=== PATIENT | female | born 1990 | race American Indian/Alaskan Native ===

== ENCOUNTER 2016-11-15 09:44 | Emergency (ER) | payer OTHER ==
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
[2016-11-15] MEDS ORDERED: FLEXERIL PO ONE (16:08)
[2016-11-15] MEDS ORDERED: NORCO 5/325 PO ONE (16:08)
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
[2016-11-15 19:04] VITALS: BP 123/85
== END 2016-11-15 19:04 | disposition home or self-care (01) ==
LOC: ED 09:44
DX: S20.219A Contusion of unspecified front wall of thorax, initial encounter (principal); M54.6 Pain in thoracic spine; M79.601 Pain in right arm; V49.59XA Passenger injured in collision with other motor vehicles in traffic accident, initial encounter; Y93.9 Activity, unspecified; Y92.9 Unspecified place or not applicable; Y99.9 Unspecified external cause status
CPT/HCPCS: 72128

== ENCOUNTER 2020-07-22 18:06 | Emergency (ER) | payer MEDICAID, OTHER ==
[2020-07-22 19:08] LABS: Basophils % (Auto) 0.5 % (0.0-1.8); Eosinophils # (Auto) 0.1 K/mm3 (0.0-0.4); Eosinophils % (Auto) 0.8 % (0.0-4.3); Hematocrit 39.7 % (30.3-42.9); Hemoglobin 13.6 gm/dl (10.1-14.3); Lymphocytes # (Auto) 2.8 K/mm3 (1.2-5.4); Lymphocytes % (Auto) 34.5 % (13.4-35.0); Mean Corpuscular HGB Conc 34 % (30-34); Mean Corpuscular Volume 91 fl (79-97); Monocytes # (Auto) 0.8 K/mm3 (0.0-0.8); Monocytes % (Auto) 9.3 % (0.0-7.3); Platelet Count 240 K/mm3 (140-440); Red Blood Count 4.34 M/mm3 (3.65-5.03); Red Cell Distribution Width 14.1 % (13.2-15.2)
--- NOTE | 2020-07-22 19:28 | Event Note ---
ED Screening Note Date of service: 07/22/20 Time: 19:26 ED Screening Note: 29-year-old female (A1; LMP 04/16/20) presents to the emergency department with complaints of lower abdominal cramps and vaginal bleeding starting yesterday. Describes the bleeding as "spotting." States she has only used one pad today. No recent trauma. Patient's last ended in demise approximately 5 months ago. Ultrasound last week was reportedly normal. She is scheduled to return to her OB at the end of July. General: Awake, appropriately interactive, no acute distress. Neck: Supple. Full range of motion intact. Cardiovascular: Normal peripheral perfusion. Pulmonary: No respiratory distress. Patient is speaking normally without use of accessory muscles. Skin: No apparent rashes or lesions. Neurological: No facial asymmetry. Speech is clear. Follows commands. Patient is alert and oriented. Musculoskeletal: Moves all four extremities spontaneously with normal range of motion. Psych: Cooperative. Appropriate mood and affect. I have greeted and performed a focused rapid initial assessment of this patient. A comprehensive ED assessment and evaluation of the patient, analysis of all test results, and completion of the medical decision-making process will be conducted by additional ED providers. This initial assessment/diagnostic orders/clinical plan/treatment(s) is/are subject to change based on patients health status, clinical progression and re-assessment. Further treatment and workup at subsequent clinical provider's discretion. Patient/guardian urged not to elope from the ED as their condition may be serious if not clinically assessed and managed.
[2020-07-22 19:55] LABS: Bacteria,Urine 1+ /HPF (Negative); Bilirubin,Urine NEG (Negative); Blood,Urine NEG (Negative); Color,Urine Yellow (Yellow); Mucus,Urine 2+ /HPF; Protein,Urine <15 mg/dL mg/dL (Negative); Urobilinogen,Urine < 2.0 mg/dL (<2.0)
[2020-07-22] MEDS ORDERED: METOCLOPRAMIDE 10 MG TAB PO ONE (20:35)
[2020-07-22] MEDS ORDERED: ACETAMINOPHEN 325 MG TAB PO ONE (20:35)
--- NOTE | 2020-07-22 21:16 | Ultrasound Report ---
US OB <= 14 weeks fetus INDICATION / CLINICAL INFORMATION: , cramping, bleeding. COMPARISON: None available. FINDINGS: Single intrauterine is seen. Staley-rump length is 13.7 mm, 7 weeks 5 days. Heart rate is 16 9. Sac is noted. Gestational sac is unremarkable. Cervix is closed measuring 3.2 cm. Ovaries are unremarkable. No adnexal lesions or free fluid. IMPRESSION: 1. Single viable intrauterine with sonographic gestational age of 7 weeks, 5 days. No abnor malities are seen. Signer Name: Manuel Nevarez MD Signed: 07/22/2020 9:11 PM Workstation Name: [id number]
--- NOTE | 2020-07-22 21:46 | Emergency Department Report ---
ED General Adult HPI - General Chief complaint: Vaginal Bleeding Stated complaint: 7WKS SPOTTING Time Seen by Provider: 07/22/20 20:20 Source: patient Mode of arrival: Ambulatory Limitations: No Limitations - History of Present Illness Initial comments: Patient is a 29-year-old female presents emergency room with points of lower abdominal cramping that began yesterday. She states that she was also having some light vaginal spotting which has completely resolved. She denies any heavy bleeding or passing clots. She states that she is still intermittently experiencing mild lower cramping. She states that she is approximately 7 weeks . She states that she goes to [facility] and reports that she had a normal ultrasound a week ago. Patient states that she has a history of a demise in February 2020 and was approximately 6 months at that time. She states that she has had intermittent nausea and vomiting which is typ ically worse in the morning. She denies any fever, diarrhea, abnormal vaginal discharge. PMHx none. no allergies to meds. /P:1/A:5 Severity scale (0 -10): 7 - Related Data Previous Rx's Medication Instructions Recorded Last Taken Type Cyclobenzaprine [Flexeril] 10 mg PO TID PRN #15 tablet 11/15/16 Unknown Rx Ibuprofen [Motrin] 600 mg PO Q8H PRN #15 tablet 11/15/16 Unknown Rx Acetaminophen [Tylenol] 650 mg PO Q8HR PRN #20 capsule 07/22/20 Unknown Rx Jenni Root [Jenni] 250 mg PO TID PRN #21 capsule 07/22/20 Unknown Rx Metoclopramide [Reglan] 10 mg PO Q8HR PRN #12 tab 07/22/20 Unknown Rx Allergies Allergy/AdvReac Type Severity Reaction Status Date / Time No Known Allergies Allergy Unverified 11/15/16 09:52 ED Review of Systems ROS: Stated complaint: 7WKS SPOTTING Other details as noted in HPI Comment: All other systems reviewed and negative ED Past Medical Hx - Past Medical History Previous Medical History?: Yes Additional medical history: Miscarriage 03/2020 - Surgical History Past Surgical History?: Yes Additional Surgical History: x 4 - Social History Smoking Status: Never Smoker Substance Use Type: Alcohol, Marijuana - Medications Home Medications: Home Medications Medication Instructions Recorded Confirmed Last Taken Type Cyclobenzaprine [Flexeril] 10 mg PO TID PRN #15 tablet 11/15/16 Unknown Rx Ibuprofen [Motrin] 600 mg PO Q8H PRN #15 tablet 11/15/16 Unknown Rx Acetaminophen [Tylenol] 650 mg PO Q8HR PRN #20 capsule 07/22/20 Unknown Rx Jenni Root [Jenni] 250 mg PO TID PRN #21 capsule 07/22/20 Unknown Rx Metoclopramide [Reglan] 10 mg PO Q8HR PRN #12 tab 07/22/20 Unknown Rx ED Physical Exam - General Limitations: No Limitations General appearance: alert, in no apparent distress - Head Head exam: Present: atraumatic, normocephalic - Eye Eye exam: Present: normal appearance - ENT ENT exam: Present: mucous membranes moist - Respiratory Respiratory exam: Present: normal lung sounds bilaterally. Absent: respiratory distress, wheezes, rales, rhonchi, stridor, chest wall tenderness, accessory muscle use, decreased breath sounds, prolonged expiratory - Cardiovascular Cardiovascular Exam: Present: regular rate, normal rhythm, normal heart sounds. Absent: systolic murmur, diastolic murmur, rubs, gallop - GI/Abdominal GI/Abdominal exam: Present: soft, normal bowel sounds. Absent: distended, tenderness, guarding, rebound, rigid - Neurological Exam Neurological exam: Present: alert, oriented X3 - Psychiatric Psychiatric exam: Present: normal affect, normal mood - Skin Skin exam: Present: warm, dry, intact ED Course Vital Signs 07/22/20 07/22/20 07/22/20 18:17 21:04 22:04 Temperature 98.1 F Pulse Rate 100 H Respiratory 20 20 20 Rate Blood Pressure 122/67 Blood Pressure [Left] O2 Sat by Pulse 97 Oximetry 07/22/20 07/22/20 22:37 22:38 Temperature 98.4 F Pulse Rate 90 Respiratory 20 20 Rate Blood Pressure Blood Pressure 124/69 [Left] O2 Sat by Pulse 99 99 Oximetry ED Medical Decision Making - Lab Data Result diagrams: 07/22/20 18:35 Lab Results 07/22/20 07/22/20 07/22/20 Range/Units 18:35 18:35 18:35 WBC 8.1 (4.5-11.0) K/mm3 RBC 4.34 (3.65-5.03) M/mm3 Hgb 13.6 (10.1-14.3) gm/dl Hct 39.7 (30.3-42.9) % MCV 91 (79-97) fl MCH 31 (28-32) pg MCHC 34 (30-34) % RDW 14.1 (13.2-15.2) % Plt Count 240 (140-440) K/mm3 Lymph % (Auto) 34.5 (13.4-35.0) % Camp % (Auto) 9.3 H (0.0-7.3) % Eos % (Auto) 0.8 (0.0-4.3) % Baso % (Auto) 0.5 (0.0-1.8) % Lymph # (Auto) 2.8 (1.2-5.4) K/mm3 Camp # (Auto) 0.8 (0.0-0.8) K/mm3 Eos # (Auto) 0.1 (0.0-0.4) K/mm3 Baso # (Auto) 0.0 (0.0-0.1) K/mm3 Seg Neutrophils % 54.9 (40.0-70.0) % Seg Neutrophils # 4.4 (1.8-7.7) K/mm3 HCG, Quant [id number] H (0-4) mIU/mL Urine Color (Yellow) Urine Turbidity (Clear) Urine pH (5.0-7.0) Ur Specific [place] (1.003-1.030) Urine Protein (Negative) mg/dL Urine Glucose (UA) (Negative) mg/dL Urine Ketones (Negative) mg/dL Urine Blood (Negative) Urine Nitrite (Negative) Urine Bilirubin (Negative) Urine Urobilinogen (<2.0) mg/dL Ur Leukocyte Esterase (Negative) Urine WBC (Auto) (0.0-6.0) /HPF Urine RBC (Auto) (0.0-6.0) /HPF U Epithel Cells (Auto) (0-13.0) /HPF Urine Bacteria (Auto) (Negative) /HPF Urine Mucus /HPF Blood Type A POSITIVE 07/22/20 Range/Units 19:36 WBC (4.5-11.0) K/mm3 RBC (3.65-5.03) M/mm3 Hgb (10.1-14.3) gm/dl Hct (30.3-42.9) % MCV (79-97) fl MCH (28-32) pg MCHC (30-34) % RDW (13.2-15.2) % Plt Count (140-440) K/mm3 Lymph % (Auto) (13.4-35.0) % Camp % (Auto) (0.0-7.3) % Eos % (Auto) (0.0-4.3) % Baso % (Auto) (0.0-1.8) % Lymph # (Auto) (1.2-5.4) K/mm3 Camp # (Auto) (0.0-0.8) K/mm3 Eos # (Auto) (0.0-0.4) K/mm3 Baso # (Auto) (0.0-0.1) K/mm3 Seg Neutrophils % (40.0-70.0) % Seg Neutrophils # (1.8-7.7) K/mm3 HCG, Quant (0-4) mIU/mL Urine Color Yellow (Yellow) Urine Turbidity Slightly-cloudy (Clear) Urine pH 5.0 (5.0-7.0) Ur Specific [place] 1.030 (1.003-1.030) Urine Protein <15 mg/dl (Negative) mg/dL Urine Glucose (UA) Neg (Negative) mg/dL Urine Ketones Neg (Negative) mg/dL Urine Blood Neg (Negative) Urine Nitrite Neg (Negative) Urine Bilirubin Neg (Negative) Urine Urobilinogen < 2.0 (<2.0) mg/dL Ur Leukocyte Esterase Neg (Negative) Urine WBC (Auto) 1.0 (0.0-6.0) /HPF Urine RBC (Auto) 2.0 (0.0-6.0) /HPF U Epithel Cells (Auto) 17.0 H (0-13.0) /HPF Urine Bacteria (Auto) 1+ (Negative) /HPF Urine Mucus 2+ /HPF Blood Type Vital Signs 07/22/20 07/22/20 07/22/20 18:17 21:04 22:04 Temperature 98.1 F Pulse Rate 100 H Respiratory 20 20 20 Rate Blood Pressure 122/67 Blood Pressure [Left] O2 Sat by Pulse 97 Oximetry 06/05/21 06/05/21 22:37 22:38 Temperature 98.4 F Pulse Rate 90 Respiratory 20 20 Rate Blood Pressure Blood Pressure 124/69 [Left] O2 Sat by Pulse 99 99 Oximetry - Radiology Data Radiology results: report reviewed Ordering Physician: LATRICE REMY Date of Service: 07/22/20 Procedure(s): US OB <= 14 weeks fetus Accession Number(s): [id number] cc: LATRICE REMY US OB <= 14 weeks fetus INDICATION / CLINICAL INFORMATION: , cramping, bleeding. COMPARISON: None available. FINDINGS: Single intrauterine is seen. Gypsy-rump length is 13.7 mm, 7 weeks 5 days. Heart rate is 169. Sac is noted. Gestational sac is unremarkable. Cervix is closed measuring 3.2 cm. Ovaries are unremarkable. No adnexal lesions or free fluid. IMPRESSION: 1. Single viable intrauterine with sonographic gestational age of 7 weeks, 5 days. No abnormalities are seen. Signer Name: Manuel Nevarez MD Signed: 07/22/2020 9:11 PM Workstation Name: [id number] Transcribed By: DENNIS Dictated By: Manuel Nevarez MD Electronically Authenticated By: Manuel Nevarez MD Signed Date/Time: 07/22/202110 DD/ 09 TD/TT: - Medical Decision Making Patient is a 29-year-old female presents emergency room with points of lower abdominal cramping that began yesterday. She states that she was also having some light vaginal spotting which has completely resolved. She denies any heavy bleeding or passing clots. She states that she is still intermittently e xperiencing mild lower cramping. She states that she is approximately 7 weeks . She states that she goes to [facility] and reports that she had a normal ultrasound a week ago. Patient states that she has a history of a demise in February 2020 and was approximately 6 months at that time. She states that she has had intermittent nausea and vomiting which is typically worse in the morning. She denies any fever, diarrhea, abnormal vaginal discharge. PMHx none. no allergies to meds. /P:1/A:5. Vitals are stable. No abdominal tenderness on exam, no guarding, no rebound, no rigidity, normal bowel sounds, no peritoneal signs. Patient is Rh+. hCG quant is [id number]. H&H is normal. UA without evidence of UTI. OB ultrasound: 1. Single viable intrauterine with sonographic gestational age of 7 weeks, 5 days. No abnormalities are seen. Patient given Reglan and Tylenol while in the emergency department with improvement of her symptoms. Discussed all results with patient and answer questions. Discussed the importance of [facility] follow-up and having a repeat hCG quant. Discussed pelvic rest and strict return precautions. Advised patient Please take medication as prescribed. Increase your water intake. Follow-up with your [facility]. Follow-up with a primary care doctor. You need to have a repeat hCG quant in 2 days. Return to emergency room for new or worsening symptoms. Critical care attestation.: If time is entered above; I have spent that time in minutes in the direct care of this critically ill patient, excluding procedure time. ED Disposition Clinical Impression: Abdominal cramping, Nausea, Vaginal spotting Qualifiers: Weeks of gestation: less than 8 weeks Qualified Code(s): Z3A.01 - Less than 8 weeks gestation of Disposition: DC-01 TO HOME OR SELFCARE Is pt being admited?: No Does the pt Need Aspirin: No Condition: Stable Instructions: Threatened Miscarriage, Vaginal Bleeding During , First Trimester Additional Instructions: Please take medication as prescribed. Increase your water intake. Follow-up with your [facility]. Follow-up with a primary care doctor. You need to have a repeat hCG quant in 2 days. Return to emergency room for new or worsening symptoms. 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
[2020-07-22 22:38] VITALS: BP 124/69
== END 2020-07-23 00:27 | disposition home or self-care (01) ==
LOC: ED 18:06
DX: O20.9 Hemorrhage in early pregnancy, unspecified (principal); O26.891 Other specified pregnancy related conditions, first trimester; R10.30 Lower abdominal pain, unspecified; F12.90 Cannabis use, unspecified, uncomplicated; Z3A.01 Less than 8 weeks gestation of pregnancy; Z72.89 Other problems related to lifestyle; Z98.890 Other specified postprocedural states
CPT/HCPCS: 36415; 76801; 81001; 84702; 85025; 86900; 86901; 99284